=== PATIENT | male | born 1965 | race Caucasian/White ===

== ENCOUNTER 2017-03-07 14:30 | Observation (INO) | payer BC, OTHER ==
[~2017-03-07] VITALS: Ht 177.8 cm; Wt 79.6 kg
[~2017-03-07 14:30] MED LIST: OXYC-57 PO
--- NOTE | 2017-03-07 16:30 | EMERGENCY ROOM VISIT NOTE ---
History Report prepared by Ian: Serafin Urñea Under the Supervision of: Dr. Gavin Rendon M.D. First contact with patient: 16:10 Chief Complaint: CHEST PAIN Stated Complaint: CHEST PAIN, SOB, REF BY SHEBA RODRIGUEZ Nursing Triage Summary: pt reports last night having sob and chest pain while walking. went to pcp sent here for eval. ekg at office was normal per pt History of Present Illness The patient is a 52 year old white male with a past medical history of GERD and an appendectomy who presents to the ED with a cc of burning left-sided chest pain beginning last night while he was walking with associated shortness of breath. Negative fevers, diaphoresis, chest pain, shortness of breath, leg pain , or any symptoms at this time. At that time, the patient was walking up a small incline which never gives him trouble on a normal day. He then began to feel this abnormal chest pain with shortness of breath and diaphoresis. His symptoms lasted for about an hour and then they resolved. He states his pain was more intense than his normal GERD chest pain. Today, the patient also struggled walking up his stairs at work. After work, he went to be evaluated by his PCP. His PCP did an ECG which was negative, but sent him to the ER for further workup. He denies any increased stressors, recent travels, or history of blood clots. Source of History: patient Onset: last night Position: chest (left) Symptom Intensity: moderate Quality: burning Timing: resolved, other (When present, lasted for an hour) Modifying Factors (Worsening): exertion Associated Symptoms: No fevers, No diaphoresis, No chest pain, No SOB Note: He denies any leg pain. When his symptoms were present, he had associated shortness of breath and diaphoresis. Review of Systems See HPI for pertinent positives and negatives. A total of ten systems were reviewed and were otherwise negative. Past Medical & Surgical Medical Problems: (1) GERD (gastroesophageal reflux disease) Family History Heart disease Social History Smoking Status: Never Smoker Smokeless Tobacco Use: No Alcohol Use: occasionally Drug Use: none Marital Status: Housing Status: lives with family Occupation Status: employed Current/Historical Medications Scheduled Acetaminophen (Tylenol), 1,000 MG PO PRN UD Fish Oil ([place]-3), 1 CAP PO DAILY Multivitamins/Minerals (Mvi With Minerals), 1 TAB PO DAILY Ranitidine Hcl (Zantac), 150 MG PO BID Allergies Coded Allergies: Aspirin (Verified Adverse Reaction, Unknown, instructed not to take, ) Physical Exam Vital Signs Date Time Temp Pulse Resp B/P (MAP) Pulse Ox O2 Delivery O2 Flow Rate FiO2 03/07/17 17:00 60 20 122/85 98 Room Air 03/07/17 16:56 60 20 133/95 99 Room Air 03/07/17 16:30 64 20 149/101 98 Room Air 03/07/17 16:21 58 03/07/17 16:15 100 Room Air 03/07/17 16:13 55 20 137/92 99 Room Air 03/07/17 14:31 36.5 69 18 156/82 99 Room Air Physical Exam GENERAL: Awake, alert, well-appearing, NAD HENT: Normocephalic, atraumatic. EYES: Normal conjunctiva. Sclera non-icteric. NECK: Supple. No nuchal rigidity. FROM. RESPIRATORY: CTAB, no rhonchi, wheezing, crackles CARDIAC: RRR, no MRG ABDOMEN: Soft, NTND, BS+ MSK: No chest wall TTP, no LE edema NEURO: GCS 15, CN 2-12 intact, moves all 4s on command SKIN: No rash or jaundice noted. Medical Decision & Procedures ER Provider Diagnostic Interpretation: Radiology results as stated below per my review and radiologist interpretation: CHEST ONE VIEW PORTABLE CLINICAL HISTORY: Atypical chest pain COMPARISON STUDY: 08/16/2014 FINDINGS: The cardiac and mediastinal contours are normal. There is no evidence of focal pulmonary consolidation. There is no evidence of failure. No pleural effusions are visualized.[ IMPRESSION: No active disease in the chest. Electronically signed by: Mihir Moses M.D. 03/07/2017 4:53 PM Dictated Date/Time: 03/07/2017 4:53 PM Laboratory Results 03/07/17 16:05 Red Blood Count 4.88, Mean Corpuscular Volume 86.5, Mean Corpuscular Hemoglobin 31.6, Mean Corpuscular Hemoglobin Concent 36.5, Mean Platelet Volume 9.2, Neutrophils (%) (Auto) 56.2, Lymphocytes (%) (Auto) 33.7, Monocytes (%) (Auto) 7.9, Eosinophils (%) (Auto) 1.7, Basophils (%) (Auto) 0.2, Neutrophils # (Auto) 3.36, Lymphocytes # (Auto) 2.01, Monocytes # (Auto) 0.47, Eosinophils # (Auto) 0.10, Basophils # (Auto) 0.01 03/07/17 16:05 Test 03/07/17 16:05 03/07/17 16:19 White Blood Count 5.97 K/uL (4.8-10.8) Red Blood Count 4.88 M/uL (4.7-6.1) Hemoglobin 15.4 g/dL (14.0-18.0) Hematocrit 42.2 % (42-52) Mean Corpuscular Volume 86.5 fL (80-100) Mean Corpuscular Hemoglobin 31.6 pg (25-34) Mean Corpuscular Hemoglobin Concent 36.5 g/dl (32-36) Platelet Count 191 K/uL (130-400) Mean Platelet Volume 9.2 fL (7.4-10.4) Neutrophils (%) (Auto) 56.2 % Lymphocytes (%) (Auto) 33.7 % Monocytes (%) (Auto) 7.9 % Eosinophils (%) (Auto) 1.7 % Basophils (%) (Auto) 0.2 % Neutrophils # (Auto) 3.36 K/uL (1.4-6.5) Lymphocytes # (Auto) 2.01 K/uL (1.2-3.4) Monocytes # (Auto) 0.47 K/uL (0.11-0.59) Eosinophils # (Auto) 0.10 K/uL (0-0.5) Basophils # (Auto) 0.01 K/uL (0-0.2) RDW Standard Deviation 38.8 fL (36.4-46.3) RDW Coefficient of Variation 12.2 % (11.5-14.5) Immature Granulocyte % (Auto) 0.3 % Immature Granulocyte # (Auto) 0.02 K/uL (0.00-0.02) Prothrombin Time 11.8 SECONDS (9.0-12.0) Prothromb Time International Ratio 1.1 (0.9-1.1) Activated Partial Thromboplast Time 28.2 SECONDS (21.0-31.0) Partial Thromboplastin Ratio 1.1 Anion Gap 5.0 mmol/L (3-11) Est Creatinine Clear Calc Drug Dose 80.0 ml/min Estimated GFR () 88.7 Estimated GFR (Non- 76.5 BUN/Creatinine Ratio 18.8 (10-20) Calcium Level 9.0 mg/dl (8.5-10.1) Phosphorus Level 3.5 mg/dl (2.5-4.9) Magnesium Level 2.2 mg/dl (1.8-2.4) Total Bilirubin 0.5 mg/dl (0.2-1) Direct Bilirubin < 0.1 mg/dl (0-0.2) Aspartate Amino Transf (AST/SGOT) 22 U/L (15-37) Alanine Aminotransferase (ALT/SGPT) 32 U/L (12-78) Alkaline Phosphatase 70 U/L (45-117) Pro-B-Type Natriuretic Peptide 12 pg/ml (0-900) Total Protein 7.7 gm/dl (6.4-8.2) Albumin 4.1 gm/dl (3.4-5.0) Lipase 138 U/L (73-393) Bedside Troponin I < 0.030 ng/ml (0-0.045) Laboratory results reviewed by me ECG Indication: chest pain Rate (beats per minute): 62 Rhythm: normal sinus Findings: T-wave inversion (Lead 3), other (No other STS or TWI, normal axis, normal intervals) ED Course 1610: The patient was evaluated in room A9. A complete history and physical exam was performed. 1715: Upon reexamination, the patient was resting. I discussed the test results and treatment plan with Dr. Julianne Alvarez of [facility] [place]. The patient will be evaluated for further management. Medical Decision The patient is a 52 year old white male with a past medical history of GERD and an appendectomy who presents to the ED with a cc of burning left-sided chest pain beginning last night while he was walking with associated shortness of breath. Negative fevers, diaphoresis, chest pain, shortness of breath, leg pain , or any symptoms at this time. Differential diagnosis: Etiologies such as cardiac ischemia, aortic dissection, pulmonary embolism, pneumonia, pneumothorax, musculoskeletal, infections, pericarditis, myocarditis , esophageal rupture, gastrointestinal, as well as others were entertained. Patient was seen and evaluated the bedside. Patient had described some left- sided pressure-like chest pain that was exertional in nature yesterday lasting 1 hour. Patient also describes some diaphoresis and some nausea. Patient states this is atypical to his prior history of GERD. Patient does have a family history of cardiac disease in his father suffered an LA at the age of 74. Patient does not take any aspirin. Patient states that he was having some dyspnea on exertion today while climbing stairs to work. Patient did present to his PCP who referred him here for further evaluation and treatment. Patient' s EKG did show T-wave inversion in lead 3 but not in contiguous leads. Patient states that he is not taking aspirin secondary to a prior history of cavernous malformation. This was deferred to the inpatient team. Patient had a negative troponin and otherwise fairly normal blood work. Given the patient's concerning chest pain history along with age thought it would be of benefit for further evaluation, treatment and possible provocative testing. Patient was admitted to the medicine service. Medication Reconcilliation Current Medication List: was personally reviewed by me Blood Pressure Screening Patient's blood pressure: Normal blood pressure Blood pressure disposition: Did not require urgent referral Consults Time Called: 1710 Consulting Physician: Dr. Julianne Alvarez - [facility] [place] Returned Call: 1715 Discussed the patient's case. The patient will be evaluated for further treatment and disposition. Impression Primary Impression: Exertional chest pain Scribe Attestation The scribe's documentation has been prepared under my direction and personally reviewed by me in its entirety. I confirm that the note above accurately reflects all work, treatment, procedures, and medical decision making performed by me. Departure Information Dispostion Being Evaluated By Hospitalist Jcarlos Shelley MD (PCP) Patient Instructions [facility]
[2017-03-07 16:38] LABS: BASO % 0.2 %; BASO ABS # 0.01 K/uL (0-0.2); EOS % 1.7 %; HEMATOCRIT 42.2 % (42-52); HEMOGLOBIN 15.4 g/dL (14.0-18.0); IG# 0.02 K/uL (0.00-0.02); LYMPH % 33.7 %; LYMPH ABS # 2.01 K/uL (1.2-3.4); MEAN CELL VOLUME 86.5 fL (80-100); MEAN CORPUSCULAR HEMOGLOBIN 31.6 pg (25-34); MEAN CORPUSCULAR HGB CONC 36.5 g/dl (32-36); MEAN PLATELET VOLUME 9.2 fL (7.4-10.4); MONO % 7.9 %; MONO ABS # 0.47 K/uL (0.11-0.59); NEUT % 56.2 %; NEUT ABS # 3.36 K/uL (1.4-6.5); PLATELET COUNT 191 K/uL (130-400); RED CELL DISTRIBUTION WIDTH CV 12.2 % (11.5-14.5); RED CELL DISTRIBUTION WIDTH SD 38.8 fL (36.4-46.3); WHITE BLOOD COUNT 5.97 K/uL (4.8-10.8)
[2017-03-07 16:42] LABS: INR 1.1 (0.9-1.1); PTT PATIENT 28.2 SECONDS (21.0-31.0)
[2017-03-07 16:49] LABS: ALBUMIN 4.1 gm/dl (3.4-5.0); BLOOD UREA NITROGEN 20 mg/dl (7-18); CARBON DIOXIDE 29 mmol/L (21-32); CREATININE 1.09 mg/dl (0.60-1.40); GLUCOSE 93 mg/dl (70-99); LIPASE 138 U/L (73-393); POTASSIUM 4.1 mmol/L (3.5-5.1); SODIUM 137 mmol/L (136-145)
[2017-03-07 16:54] LABS: ALKALINE PHOSPHATASE 70 U/L (45-117); ALT/SGPT 32 U/L (12-78); AST/SGOT 22 U/L (15-37); TOTAL PROTEIN 7.7 gm/dl (6.4-8.2)
[2017-03-07] MEDS: ASPIRIN 324 MG CHEW ONE ×2 (16:54→16:57)
--- NOTE | 2017-03-07 16:54 | DIAGNOSTIC IMAGING REPORT ---
CHEST ONE VIEW PORTABLE CLINICAL HISTORY: Atypical chest pain COMPARISON STUDY: 08/16/2014 FINDINGS: The cardiac and mediastinal contours are normal. There is no evidence of focal pulmonary consolidation. There is no evidence of failure. No pleural effusions are visualized.[ IMPRESSION: No active disease in the chest. Electronically signed by: Mihir Moses M.D. 03/07/2017 4:53 PM Dictated Date/Time: 03/07/2017 4:53 PM
[2017-03-07] MEDS ORDERED: MULT-513 PO (17:15)
[2017-03-07] MEDS ORDERED: OMEG10007 PO (17:15)
[2017-03-07] MEDS ORDERED: ACET-1256 PO (17:15)
[2017-03-07] MEDS ORDERED: RANI150T3 PO (17:15)
[2017-03-07 17:29] LABS: PHOSPHORUS 3.5 mg/dl (2.5-4.9)
[2017-03-07] MEDS ORDERED: MAGNESIUM HYDROXIDE SUSP 30 ML UDC PO PRN (19:15)
[2017-03-07] MEDS ORDERED: POLYETHYLENE (MIRALAX) 17 GM PACK PO PRN (19:15)
[2017-03-07] MEDS ORDERED: ONDANSETRON INJ 2 MG/ML 2 ML VIAL IV PRN (19:15)
[2017-03-07] MEDS ORDERED: ACETAMINOPHEN 325 MG TAB PO PRN (19:15)
[2017-03-07] MEDS ORDERED: ALUMINUM/MAGNESIUM/SIMETH (MAALOX MAX) 30 ML UDC PO PRN (19:15)
[2017-03-07] MEDS ORDERED: NITROGLYCERIN 0.4 MG SL PER TAB CHARGE SL PRN (19:15)
[2017-03-07] MEDS ORDERED: IV FLUIDS COMPLETED PRN (19:30)
--- NOTE | 2017-03-07 19:32 | History and Physical ---
History & Physical Date & Time of Service: Mar 07, 2017 at 19:09 Chief Complaint: Chest Pain, Sob, Ref By Fanta Soliz Primary Care Physician: Jcarlos Rangel MD History of Present Illness Source: patient Mr. Germain is a 52 y/o male with PMHx of GERD, Cavernous Malformation of the Brain, Elevated LDL, and S/P Appendectomy who presents to the ED c/o exertion CP , GARRETT, and diaphoresis that occurred yesterday. Patient reports he is very active and tries to walk one hour every night. He does report a heavy supper and feelings of his normal indigestion when he went on this walk. However when exertion the chest pain intensified far more than his normal GERD symptoms. He states he was only 20 minutes into the walk and walking on an incline when he developed sudden L-sided CP that was burning in quality. He reports associated SOB but was able to make it to the top of this incline. When he made it to the top he noticed he was profusely diaphoretic even though it was very cold last evening. He states he walks this path frequently and never has issues. He was able to walk home and reports when he rested his symptoms did spontaneously resolve. Since they went away he didn't think much more about it. When he left for work today he felt his normal self. He normally takes the stairs to his 3rd floor office every day. He states today he was having a lot more SOB trying to go up the stairs and fatigue. Again he states this is not normal for him. However, today he did not have chest pain with it. He decided to go to his PCPs office and reports a normal EKG. In the ED his EKG shows NSR without ischemic findings. It is mentioned of T wave inversion in V1 however this is likely normal variant. Currently symptoms are resolved. He denies H/O DVT/PE or cardiac disease. States his cholesterol was checked approx. 2 years ago and was good but his LDL was slightly elevated but has not required medicinal management. He has never smoked. He reports his father having an MS at the ge of 74. He does have a H/O cavernous malformation of the brain that was monitored for about 4 years and has been stable. He does avoid NSAIDs/ASA due to this. Past Medical/Surgical History Medical Problems: (1) GERD (gastroesophageal reflux disease) Status: Chronic Family History Heart disease Myocardial Infarction FATHER, Onset:60 years & older Social History Smoking Status: Never Smoker Smokeless Tobacco Use: No Alcohol Use: socially Drug Use: none Marital Status: Housing status: lives with significant other Occupational Status: employed Multi-Drug Resistant Organisms History of MDRO: No Allergies Coded Allergies: Aspirin (Verified Adverse Reaction, Unknown, instructed not to take, ) Home Medications Scheduled Acetaminophen (Tylenol), 1,000 MG PO PRN UD Fish Oil ([place]-3), 1 CAP PO DAILY Multivitamins/Minerals (Mvi With Minerals), 1 TAB PO DAILY Ranitidine Hcl (Zantac), 150 MG PO BID Scheduled PRN Nitroglycerin (Nitrostat), 0.4 MG SL UD PRN for Chest Pain Review of Systems Constitutional: + sweats (yesterday - currently resolved), No fever, No chills ENT: No nasal symptoms, No sore throat Respiratory: + dyspnea on exertion, No cough, No wheezing, No dyspnea at rest Cardiovascular: + chest pain (currently resolved), No orthopnea, No palpitations Abdomen: No pain, No nausea, No vomiting, No diarrhea, No constipation, No GI bleeding Musculoskeletal: No swelling, No calf pain Genitourinary - Male: No dysuria Hematologic / Lymphatic: No abnormal bleeding/bruising, No clotting problems Physical Exam Vital Signs Date Time Temp Pulse Resp B/P (MAP) Pulse Ox O2 Delivery O2 Flow Rate FiO2 03/07/17 17:00 60 20 122/85 98 Room Air 03/07/17 16:56 60 20 133/95 99 Room Air 03/07/17 16:30 64 20 149/101 98 Room Air 03/07/17 16:21 58 03/07/17 16:15 100 Room Air 03/07/17 16:13 55 20 137/92 99 Room Air 03/07/17 14:31 36.5 69 18 156/82 99 Room Air General Appearance: WD/WN, no apparent distress Head: normocephalic, atraumatic Eyes: sclerae normal ENT: hearing grossly normal Neck: supple, no JVD, trachea midline Respiratory/Chest: lungs clear, normal breath sounds, no respiratory distress, no accessory muscle use Cardiovascular: regular rate, rhythm, no gallop, no murmur Abdomen/GI: normal bowel sounds, non tender, soft Back: normal inspection Extremities/Musculoskelatal: no calf tenderness, no pedal edema Neurologic/Psych: no motor/sensory deficits, alert, oriented x 3 Skin: normal color, warm/dry Diagnostics Laboratory Results Results Past 24 Hours Test 03/07/17 16:05 03/07/17 16:19 Range/Units White Blood Count 5.97 4.8-10.8 K/uL Red Blood Count 4.88 4.7-6.1 M/uL Hemoglobin 15.4 14.0-18.0 g/dL Hematocrit 42.2 42-52 % Mean Corpuscular Volume 86.5 80-100 fL Mean Corpuscular Hemoglobin 31.6 25-34 pg Mean Corpuscular Hemoglobin Concent 36.5 32-36 g/dl Platelet Count 191 130-400 K/uL Mean Platelet Volume 9.2 7.4-10.4 fL Neutrophils (%) (Auto) 56.2 % Lymphocytes (%) (Auto) 33.7 % Monocytes (%) (Auto) 7.9 % Eosinophils (%) (Auto) 1.7 % Basophils (%) (Auto) 0.2 % Neutrophils # (Auto) 3.36 1.4-6.5 K/uL Lymphocytes # (Auto) 2.01 1.2-3.4 K/uL Monocytes # (Auto) 0.47 0.11-0.59 K/uL Eosinophils # (Auto) 0.10 0-0.5 K/uL Basophils # (Auto) 0.01 0-0.2 K/uL RDW Standard Deviation 38.8 36.4-46.3 fL RDW Coefficient of Variation 12.2 11.5-14.5 % Immature Granulocyte % (Auto) 0.3 % Immature Granulocyte # (Auto) 0.02 0.00-0.02 K/uL Prothrombin Time 11.8 9.0-12.0 SECONDS Prothromb Time International Ratio 1.1 0.9-1.1 Activated Partial Thromboplast Time 28.2 21.0-31.0 SECONDS Partial Thromboplastin Ratio 1.1 Sodium Level 137 136-145 mmol/L Potassium Level 4.1 3.5-5.1 mmol/L Chloride Level 103 98-107 mmol/L Carbon Dioxide Level 29 21-32 mmol/L Anion Gap 5.0 3-11 mmol/L Blood Urea Nitrogen 20 7-18 mg/dl Creatinine 1.09 0.60-1.40 mg/dl Est Creatinine Clear Calc Drug Dose 80.0 ml/min Estimated GFR () 88.7 Estimated GFR (Non- 76.5 BUN/Creatinine Ratio 18.8 10-20 Random Glucose 93 70-99 mg/dl Calcium Level 9.0 8.5-10.1 mg/dl Phosphorus Level 3.5 2.5-4.9 mg/dl Magnesium Level 2.2 1.8-2.4 mg/dl Total Bilirubin 0.5 0.2-1 mg/dl Direct Bilirubin < 0.1 0-0.2 mg/dl Aspartate Amino Transf (AST/SGOT) 22 15-37 U/L Alanine Aminotransferase (ALT/SGPT) 32 12-78 U/L Alkaline Phosphatase 70 45-117 U/L Pro-B-Type Natriuretic Peptide 12 0-900 pg/ml Total Protein 7.7 6.4-8.2 gm/dl Albumin 4.1 3.4-5.0 gm/dl Lipase 138 73-393 U/L Bedside Troponin I < 0.030 0-0.045 ng/ml Diagnostic Radiology CHEST ONE VIEW PORTABLE FINDINGS: The cardiac and mediastinal contours are normal. There is no evidence of focal pulmonary consolidation. There is no evidence of failure. No pleural effusions are visualized.[ IMPRESSION: No active disease in the chest. EKG Normal sinus rhythm Normal ECG When compared with ECG of 16-AUG-2014 04:10, No significant change was found Confirmed by Jcarlos Sarmiento ([id number]) on 03/07/2017 6:28:36 PM Impression Assessment and Plan Mr. Germain is a 52 y/o male with PMHx of GERD, Cavernous Malformation of the Brain, and S/P Appendectomy who presents to the ED c/o exertion CP, GARRETT, and diaphoresis that occurred yesterday. Chest Pain on Exertion: - Patient has limited risk factors for ACS as he is extremely active, non-smoker , no cardiac history - however does report abnormal LDL but hasn't had them checked in a couple years - EKG with NSR and no ischemic findings; initial troponin negative - Will obtain D-Dimer - Given how active he is and this sudden change with diaphoresis it would be reasonable to obtain stress testing for R/O any underlying cardiac cause - Monitor on telemetry and trend cardiac enzymes - Stress testing pending negative cardiac enzymes GERD: - Zantac 150 mg BID Cavernous Malformation of Brain: STABLE - Avoids ASA/NSAIDs when possible - pending stress testing can address the need for ASA therapy DVT Prophylaxis: SCDS/Ambulation Code Status: FULL RESUSCITATION Disposition: - Pending stress test - likely D/C tomorrow I personally interviewed and examined the patient. I agree with history of present illness and physical exam mentioned above, I also performed my own history taking and examination. Past medical history and review of system has been obtained by myself I reviewed all pertinent labs and studies Reviewed current medications I discussed and formulated of the assessment and plan mentioned above. Ordered Serial cardiac enzymes EKG when necessary chest pain Please refer to the Summary mentioned below. 52-year-old man was presented to the ED with chest pain and exertional shortness of breath Patient will be admitted for chest pain rule out please refer to operative note for details. General Appearance: not in acute distress Eyes: normal Sclerae, extraocular muscle intact ENT: hearing grossly normal Neck: supple Respiratory/Chest: normal air entry bilateral ,no respiratory distress, no accessory muscle use Cardiovascular: regular rate, rhythm, no murmur Abdomen: non tender, soft, no masses Extremities: no edema Neurologic/Psychiatric: Awake alert oriented times place and person moves all extremities sensation intact cranial nerves II-12 appear to be intact Skin: normal color, warm/dry, no rash Donal Alvarez MD, [facility] Level of Care Telemetry Resuscitation Status FULL RESUSCITATION VTE Prophylaxis VTE Risk Assessment Done? Y/N: Yes Risk Level: Moderate Given or contraindicated: SCD's Social Service Consult None Apply
[2017-03-07 20:34] VITALS: BP 146/87; PULSE 67; TEMP 36.5; O2SAT 100; Ht 177.8 cm; Wt 79.6 kg
[2017-03-07] MEDS: RANITIDINE HCL 150 MG TAB PO SCH (21:34)
[2017-03-07 22:50] VITALS: BP 128/73; PULSE 57; TEMP 36.7; O2SAT 97
[2017-03-08 03:40] VITALS: BP 112/71; PULSE 60; TEMP 36.6; O2SAT 97
[2017-03-08 04:34] LABS: CHOLESTEROL 181 mg/dl (0-200); LDL CHOLESTEROL CALCULATED 100 mg/dl
[2017-03-08 07:58] VITALS: BP 125/75; PULSE 65; TEMP 36.4; O2SAT 96
[2017-03-08 08:00] VITALS: O2SAT 96
[2017-03-08] MEDS: RANITIDINE HCL 150 MG TAB PO SCH (08:20)
[2017-03-08 11:33] VITALS: BP 123/80; PULSE 61; TEMP 37.2; O2SAT 97
[2017-03-08 12:00] VITALS: O2SAT 95
[2017-03-08] MEDS ORDERED: NTRSLP4 SL (12:14)
--- NOTE | 2017-03-08 12:31 | Discharge Instructions ---
Discharge Instructions Date of Service Mar 08, 2017. Admission Reason for Admission: Exertional Chest Pain Discharge Discharge Diagnosis / Problem: Chest Pain Discharge Goals Goal(s): Improve disease control, Prevent Disease Progression Activity Recommendations Activity Limitations: per Instructions/Follow-up section . Instructions / Follow-Up Instructions / Follow-Up You came to [facility] due to chest pain that occurred during your usual daily walk. We checked a number of tests such as an EKG (electrical tracing of your heart), troponin (enzyme that measures damage to your heart) and a chest x-ray, which all came back normal. Having said that, we still cannot fully rule out that your chest pain was not caused by your heart until we obtain a stress test, where they put you on a treadmill and monitor your heart's response to the exercise. Unfortunately, the hospital does not conduct stress tests on the weekend and we will have to wait for the next available appointment during the week. The office is closed on the and therefore we will call to schedule the stress test on Friday and let you know when your appointment is. Until you are able to have your stress test, please restrict yourself to minimal activity and exertion. Rest in bed or on the couch, and do not do any strenuous activity. If you have any chest pain, please take the nitroglycerin tablet (place it under your tongue) call 911 immediately so that you can be reassessed at the hospital. We also checked your cholesterol panel (see below) while you were in the hospital. Your triglycerides were high at 218. Please continue to take your omega 3 fish oils, maintain a diet low in saturated fats and transfats, lower your alcohol intake and avoid foods that contain added and refined sugars. Please follow up with your PCP regarding improving your triglyceride levels. Current Hospital Diet Patient's current hospital diet: AHA Diet (Heart Healthy) Discharge Diet Recommended Diet: AHA Diet (Heart Healthy) Pending Studies Studies pending at discharge: no Laboratory Results Lipid Panel Test 03/08/17 03:40 Range/Units Triglycerides Level 218 H 0-150 mg/dl Cholesterol Level 181 0-200 mg/dl HDL Cholesterol 37 mg/dl Cholesterol/HDL Ratio 4.9 LDL Cholesterol, Calculated 100 mg/dl Medical Emergencies . Who to Call and When: Medical Emergencies: If at any time you feel your situation is an emergency, please call 911 immediately. . Non-Emergent Contact Non-Emergency issues call your: Primary Care Provider . . "Provider Documentation" section prepared by Shar Holder. . VTE Core Measure Inpt VTE Proph given/why not?: SCD's
--- NOTE | 2017-03-08 12:45 | Discharge Summary ---
Discharge Summary Date of Service Mar 08, 2017. Discharge Summary Admission Date: Mar 07, 2017 at 19:05 Discharge Date: Mar 08, 2017 Discharge Disposition: Home Principal Diagnosis: Exertional Chest Pain Problems/Secondary Diagnoses: 1) GERD 2) Cavernous Malformation of the Brain Procedures: CHEST ONE VIEW PORTABLE CLINICAL HISTORY: Atypical chest pain COMPARISON STUDY: 08/16/2014 FINDINGS: The cardiac and mediastinal contours are normal. There is no evidence of focal pulmonary consolidation. There is no evidence of failure. No pleural effusions are visualized.[ IMPRESSION: No active disease in the chest. Medication Reconciliation New Medications: Nitroglycerin (Nitrostat) 0.4 Mg/1 Tab Subl 0.4 MG SL UD PRN for Chest Pain for 30 Days, #30 TABS 3 Refills Continued Medications: Acetaminophen (Tylenol) 500 Mg Tab 1000 MG PO PRN UD, TAB Fish Oil ([place]-3) 1 Ea Cap 1 CAP PO DAILY, CAP Multivitamins/Minerals (Mvi With Minerals) Tab 1 TAB PO DAILY, TAB Ranitidine Hcl (Zantac) 150 Mg Tab 150 MG PO BID, TAB Discharge Exam Mr. Germain reports he feels well today. He denies any new episodes of chest pain , SOB, diaphoresis, n/v, lightheadedness. He is eager to be discharged. Review of Systems: Constitutional: No fever, No chills Respiratory: No cough, No sputum, No shortness of breath, No dyspnea at rest Cardiovascular: No chest pain, No edema, No palpitations Abdomen: No pain, No nausea, No vomiting, No diarrhea, No constipation Hospital Course Mr. Germain was admitted to [facility] due to exertional chest pain that occurred 20 minutes into his daily walk. Below are the medical problems addressed during his stay: 1) Chest pain - EKG, troponin x3, d-dimer, CXR negative - unable to do stress test as it is the weekend, will arrange outpatient stress test MEGGAN with Dr. Solis's office - patient was counselled on minimal activity until then and prescribed sublingual nitroglycerin in the event he has chest pain. He was also told to return to the ED if he experiences chest pain - held off on aspirin given history of cavernous malformation in the brain 2) Elevated Triglycerides - his TG levels were 218 in the hospital - continue omega 3 fish oils and counselled on dietary changes - recommend outpatient follow up 3) GERD - pt states zantac has not be as effective for him recently - will defer to PCP once his cardiac problems have been managed Total Time Spent: Less than 30 minutes This includes examination of the patient, discharge planning, medication reconciliation, and communication with other providers. Discharge Instructions Please refer to the electronic Patient Visit Report (Discharge Instructions) for additional information. Additional Copies To Jcarlos Rangel MD Resident Tracking Resident Involvement: Resident Care Provided Care Provided: Adult Hospital Medicine History Resident Physician Supervision Note: I was present with Dr. Holder during the history and exam. I discussed the case with the resident and agree with the findings and plan as documented in the note. Any exceptions or clarifications are listed here. Pt resting comfortably in bed without complaint of chest pain/SOB. Initial episode of chest pain was onset following a large meal and a 30 minute walk in the cold with a decreasing effecacy of H2 prophylaxis in recent history. SOB episode the following day after 3 flights without diaphoresis or other symptoms. General Appearance: WD/WN, no apparent distress Respiratory: chest non-tender, lungs clear, normal breath sounds, no respiratory distress Cardiovascular: normal peripheral pulses, regular rate, rhythm, no edema, no murmur Gastrointestinal: normal bowel sounds, non tender, soft, no organomegaly Assessment/Plan 52 y/o male w/ h/o borderline hyperlipidemia presents w/ chest pain which has since resolved Chest pain - evaluation as above. Discussed inpatient v. outpatient evaluation pros/cons including risk of subsequent chest pain. Okay to d/c to outpatient stress test with minimal exertion prior and nitro with strong precautions. Agree w/ hold off ASA 2/2 cavernous malformation in the brain Hypertriglyceridemia - mild - continue fish oil GERD - continue ranitidine
[2017-03-08 13:17] VITALS: BP 123/80; PULSE 61; TEMP 37.2; O2SAT 95
== END 2017-03-08 13:45 | disposition home or self-care (01) ==
LOC: C.EDB 14:31 → C.2T 19:05 → ENRESERV 19:29
PROVIDERS: ADMIT Internal Medicine; ATTEND Family Medicine
DX: R07.89 Other chest pain (principal); K21.9 Gastro-esophageal reflux disease without esophagitis; Q04.8 Other specified congenital malformations of brain; E78.1 Pure hyperglyceridemia; E78.5 Hyperlipidemia, unspecified; Z90.49 Acquired absence of other specified parts of digestive tract; Z82.49 Family history of ischemic heart disease and other diseases of the circulatory system